=== PATIENT | female | born 1950 | race Asian ===

== ENCOUNTER → 2023-11-29 | Outpatient (CLI) | payer MEDICARE ==
--- NOTE | 2023-11-29 08:21 | MM ---
Reason for Exam: Clinical finding. Last screening mammogram was performed 7 month(s) ago. Indicated Problems: Lump or thickening of the right side for 2 Week(s). Patient History: Menarche at age 11. Patient has no children. Left ovary removed at age 44. Right ovary removed at age 44. Hysterectomy at age 44. Postmenopausal. Mother had breast cancer at or over age 50. Risk Values: Deena 5 year model risk: 3.5%. NCI Lifetime model risk: 7.9%. Tissue Density: The breasts are heterogeneously dense, which may obscure small masses. Findings: Analyzed By CAD. No discrete abnormality at the site of the palpable abnormality right breast. Ultrasound is recommended. No persistent density on additional spot compression imaging left breast. Overall Assessment: Incomplete: need additional imaging evaluation, BI-RAD 0 Management: Diagnostic Breast Ultrasound of the right breast. . Results were given to the patient verbally at the time of exam. Patient should continue monthly self-breast exams. A clinical breast exam by your physician is recommended on an annual basis. This exam should not preclude additional follow-up of suspicious palpable abnormalities. Note on Deena scores and lifetime risk: 1. A Deena score greater than 3% is considered moderate risk. If this is the case, consider specialist referral to assess eligibility for a risk reducing agent. 2. If overall lifetime risk for the development of breast cancer is 20% or higher, the patient may qualify for future screening with alternating mammogram and breast MRI. [facility], , 11/29/2023 8:18 AM. Electronically signed and approved by: Gerber Banks M.D. Radiologis
--- NOTE | 2023-11-29 08:27 | USB ---
Reason for Exam: Clinical finding. Patient History: Menarche at age 11. Patient has no children. Left ovary removed at age 44. Right ovary removed at age 44. Hysterectomy at age 44. Postmenopausal. Mother had breast cancer at or over age 50. Risk Values: Deena 5 year model risk: 3.5%. NCI Lifetime model risk: 7.9%. Technique: Method: Targeted. Prior Study Comparison: 01/12/2022 Bilateral MG 3D screening mammo w/cad, [facility]. 04/26/2023 Bilateral MG 3D screening mammo w/cad, [facility]. Findings: The upper inner quadrant of the right breast, the axilla of the right breast and the retroareolar of the right breast were scanned. No solid or cystic masses are identified.. Overall Assessment: Negative, BI-RAD 1 Management: Screening Mammogram of both breasts in 1 year. A clinical breast exam by your physician is recommended on an annual basis and results should be correlated with mammographic findings. This exam should not preclude additional follow-up of suspicious palpable abnormalities. Results were given to the patient verbally at the time of exam. [facility], , 11/29/2023 8:23 AM. Electronically signed and approved by: Gerber Banks M.D. Radiologis
== END | disposition home or self-care (01) ==
LOC: RADMAMWWP 07:30
PROVIDERS: ATTEND Family Medicine
CPT/HCPCS: 77062; 77066